=== PATIENT | female | born 1955 | race Caucasian/White ===

== ENCOUNTER 2017-08-05 05:35 | Day surgery (SDC) | payer OTHER | END 2017-08-05 10:40 | disposition home or self-care (01) | LOC: AMB-ENDOS 05:35 | DX: C20 Malignant neoplasm of rectum (principal); R59.0 Localized enlarged lymph nodes ==

== ENCOUNTER 2018-02-10 06:32 | Day surgery (SDC) | payer OTHER ==
[2018-02-15] MEDS ORDERED: LOSARTAN POTAS100 MG PO (16:53)
[2018-02-15] MEDS ORDERED: TOPROL XL25 M1 PO (16:53)
[2018-02-15] MEDS ORDERED: SIMVASTATIN20 MG PO (16:54)
== END 2018-02-10 11:30 | disposition home or self-care (01) ==
LOC: AMB-ENDOS 06:32
DX: K64.8 Other hemorrhoids (principal)

== ENCOUNTER 2018-02-17 05:35 | Inpatient (IN) | payer OTHER ==
[~2018-02-17] VITALS: Ht 157.5 cm; Wt 66.7 kg
[~2018-02-17 05:35] MED LIST: LOSARTAN POTAS100 MG PO; SIMVASTATIN20 MG PO; TOPROL XL25 M1 PO
== END 2018-03-03 10:06 | disposition home or self-care (01) | DRG 330 ==
LOC: SURG 05:35 → O/R 05:35 → SURH 07:00 → SURG 02-26 20:54
PROVIDERS: Colon & Rectal Surgery
PROC: 0D1B4Z4 Bypass Ileum to Cutaneous, Percutaneous Endoscopic Approach (ICD-10-PCS; 2018-02-26)
PROC: 07TC4ZZ Resection of Pelvis Lymphatic, Percutaneous Endoscopic Approach (ICD-10-PCS; 2018-02-26)
PROC: 0DNW4ZZ Release Peritoneum, Percutaneous Endoscopic Approach (ICD-10-PCS; 2018-02-26)
PROC: 0DJD8ZZ Inspection of Lower Intestinal Tract, Via Natural or Artificial Opening Endoscopic (ICD-10-PCS; 2018-02-26)
PROC: 0DTP4ZZ Resection of Rectum, Percutaneous Endoscopic Approach (ICD-10-PCS; principal; 2018-02-26 13:00)
PROC: BW24ZZZ Computerized Tomography (CT Scan) of Chest and Abdomen (ICD-10-PCS; 2018-03-02)
DX: C20 Malignant neoplasm of rectum (principal); K56.690 Other partial intestinal obstruction; J98.11 Atelectasis; I11.9 Hypertensive heart disease without heart failure; Z93.2 Ileostomy status; R59.0 Localized enlarged lymph nodes; K66.0 Peritoneal adhesions (postprocedural) (postinfection)

== ENCOUNTER 2018-11-03 09:17 | Outpatient (CLI) | payer OTHER | END 2018-11-03 09:19 | disposition home or self-care (01) | LOC: RX STUDY 09:17 | DX: C20 Malignant neoplasm of rectum (principal) ==

== ENCOUNTER 2018-11-18 13:00 | Inpatient (IN) | payer OTHER ==
[~2018-11-18] VITALS: Ht 157.5 cm; Wt 62.1 kg
== END 2018-11-30 10:49 | disposition home or self-care (01) | DRG 330 ==
LOC: O/R 13:00 → SURH 11-26 06:07 → O/R 11-26 13:00 → SURH 11-26 17:30
PROVIDERS: ADMIT Colon & Rectal Surgery
PROC: 0DQB4ZZ Repair Ileum, Percutaneous Endoscopic Approach (ICD-10-PCS; principal; 2018-11-26 15:00)
DX: Z43.2 Encounter for attention to ileostomy (principal); C20 Malignant neoplasm of rectum; I11.9 Hypertensive heart disease without heart failure

== ENCOUNTER 2018-11-24 08:00 | Day surgery (SDC) | payer OTHER | END 2018-11-24 12:50 | disposition home or self-care (01) | LOC: AMB-ENDOS 08:00 | DX: K64.8 Other hemorrhoids (principal) ==

== ENCOUNTER 2019-10-19 07:35 | Day surgery (SDC) | payer OTHER | END 2019-10-19 15:20 | disposition home or self-care (01) | LOC: AMB-ENDOS 07:35 | PROVIDERS: ATTEND Colon & Rectal Surgery | DX: K62.89 Other specified diseases of anus and rectum (principal); K52.89 Other specified noninfective gastroenteritis and colitis; K64.8 Other hemorrhoids; Z20.828 Contact with and (suspected) exposure to other viral communicable diseases ==

== ENCOUNTER 2020-10-24 10:28 | Day surgery (SDC) | payer OTHER | END 2020-10-24 13:05 | disposition home or self-care (01) | LOC: AMB-ENDOS 10:28 | PROVIDERS: ATTEND Colon & Rectal Surgery | DX: K62.89 Other specified diseases of anus and rectum (principal); K64.8 Other hemorrhoids; Z20.822 Contact with and (suspected) exposure to COVID-19 ==